=== PATIENT | female | born 1995 | race Hispanic/Latino ===

== ENCOUNTER 2020-03-28 18:12 | Emergency (ER) | payer SELFPAY ==
[~2020-03-28 18:12] MED LIST: MOTRIN800 MG PO; TORADOL PO; TRIAMCINOLON0.13 EX
[2020-03-28 18:42] VITALS: BP 137/100
[2020-03-28] MEDS ORDERED: ELIMITE52 (18:51)
[2020-03-28] MEDS ORDERED: HYDROCHLOROTH12.5 M1 PO (18:51)
[2020-03-28] MEDS ORDERED: PERMETHRIN5 % EX (18:53)
== END 2020-03-28 18:59 | disposition home or self-care (01) | DRG 607 ==
LOC: ED 18:12
DX: B86 Scabies (principal); E11.9 Type 2 diabetes mellitus without complications; I10 Essential (primary) hypertension

== ENCOUNTER 2024-06-19 12:42 | Emergency (ER) | payer SELFPAY ==
[~2024-06-19] VITALS: Ht 172.7 cm; Wt 104.0 kg
[~2024-06-19 12:42] MED LIST changes: +ELIMITE52; +HYDROCHLOROT12.5 M1 PO; +HYDROCHLOROTH12.5 M1 PO; +PERMETHRIN5 % EX; +TAM75CAP PO; +ZOFRAN4 MG/TAB PO
[2024-06-19] MEDS ORDERED: MEDDOSEPAK PO (14:29)
[2024-06-19 14:36] VITALS: BP 140/86
== END 2024-06-19 14:46 | disposition home or self-care (01) | DRG 316 ==
LOC: ED 12:42
DX: R09.A2 Foreign body sensation, throat (principal); I10 Essential (primary) hypertension; E11.9 Type 2 diabetes mellitus without complications